=== PATIENT | female | born 1955 | race Caucasian/White ===

== ENCOUNTER 2018-03-10 06:21 | Observation (INO) | payer OTHER ==
[~2018-03-10] VITALS: Ht 154.9 cm; Wt 79.0 kg
[2018-03-10] VITALS (19 sets, daily range): BP systolic 107–154; BP diastolic 59–74; PULSE 61–92; RESP 12–18; Ht 154.9 cm; Wt 79.0 kg
[2018-03-10] MEDS ORDERED: SOD CHLORIDE 0.9% 1,000 ML IV SCH (07:00)
[2018-03-10] MEDS ORDERED: ROCURONIUM 50 MG INJ ONE (07:00)
[2018-03-10] MEDS ORDERED: CEFAZOLIN 2 GM/50 ML (PMX) 50 ML IVPB ONE (07:00)
[2018-03-10] MEDS ORDERED: DESFLURANE 15 MIN ONE (07:00)
[2018-03-10] MEDS ORDERED: ACETAMINOPHEN 500 MG TAB PO STA (07:19)
[2018-03-10] MEDS ORDERED: ACETAMINOPHEN 500 MG TAB ONE (07:22)
[2018-03-10] MEDS ORDERED: LOSA25TA12 PO (07:28)
[2018-03-10] MEDS ORDERED: FISH1CAP PO (07:29)
[2018-03-10] MEDS ORDERED: LEVO100T82 PO (07:29)
[2018-03-10] MEDS ORDERED: ATOR20TA38 PO (07:29)
[2018-03-10] MEDS ORDERED: DEXAMETHASONE 4 MG/ML 5 ML INJ ONE (07:51)
[2018-03-10] MEDS ORDERED: FENTAnyl 50 MCG/ML VIAL ONE ×2 (07:51→09:51)
[2018-03-10] MEDS ORDERED: LIDOCAINE 2% (SDV) 5 ML INJ ONE (07:51)
[2018-03-10] MEDS ORDERED: PROPOFOL 40 ML ONE (07:51)
[2018-03-10] MEDS ORDERED: MIDAZOLAM 1 MG/ML 2 ML INJ ONE (07:51)
[2018-03-10] MEDS ORDERED: CEFAZOLIN 1 GM INJ ONE (07:52)
[2018-03-10] MEDS ORDERED: FAMOTIDINE 20 MG INJ ONE (07:52)
--- NOTE | 2018-03-10 08:18 | PREAC ---
Date/Time of Note Date/Time of Note DATE: 03/10/18 TIME: 08:15 Anesthesia Eval and Record Evaluation Time Pre-Procedure Interview DATE: 03/10/18 TIME: 08:15 Age 62 Sex female NPO: 8 hrs Preoperative diagnosis cholelithiasis Planned procedure Lap cholecystectomy Past Medical History Past Medical History: Includes Cardio: HTN, Dyslipidemia Endo: Hypothyroid GI: Obesity Surgery & Anesthesia Issues No known issue (tubal ligation, appendectomy) Meds Anticoagulation: No Beta Phil within 24 hr: No Reason Beta Phil not given: Pt. not on B-Phil Reported Medications Levothyroxine Sodium* (Levoxyl*) 100 Mcg Tablet, 100 MCG PO BEFORE BREAKFAST, #30 TAB 03/10/18 Atorvastatin Calcium* (Atorvastatin Calcium*) 20 Mg Tablet, 20 MG PO QHS, #30 TAB 03/10/18 Fish Oil/Dha/Epa (FISH OIL 1,200 MG FISH OIL) 1 Each Capsule, 1 EACH PO BID, CAP 03/10/18 Losartan Potassium* (Losartan Potassium*) 25 Mg Tablet, 25 MG PO DAILY, TAB 03/10/18 Current Medications Sodium Chloride 1,000 ml @ 75 mls/hr [id number] IV ; Start 03/10/18 at 07:00; Stop 03/10/18 at 20:19 Meds reviewed: Yes Allergies Coded Allergies: No Known Drug Allergy (Unverified Allergy, Unknown, 03/10/18) Allergies Reviewed: Yes Labs/Studies Labs Reviewed: Reviewed by anesthesiologist Result Diagram: 03/10/18 0706 03/10/18 0706 Laboratory Tests 03/10/18 07:06 test: N/A Studies: ECG (sr, t wav abnormality, consider lateral ischemia), CXR (No acute abnormality) Pre-procedure Exam Last vitals Vital Signs Date Temp Pulse Resp B/P (MAP) Pulse Ox O2 O2 Flow FiO2 Time Delivery Rate 03/10/18 96.5 07:24 03/10/18 61 18 154/67 98 Room Air 07:02 (96) Airway: Adequate mouth opening, Adequate thyromental dist Mallampati: Mallampati II Teeth: Normal Lung: Normal Heart: Normal ASA Physical Status ASA physical status: 2 Emergency: None Planned Anesthetic General/MAC: ETT Pre-operative Attestations Prior to commencing anesthesia and surgery, the patient was re-evaluated, there was verification of: *The patient's identity *The results of appropriate recent lab work and preoperative vital signs *The above evaluation not changing prior to induction *Anesthetic plan, risk benefits, alternative and complications discussed with patient/family; questions answered; patient/family understands, accepts and wishes to proceed. DOUG LESLIE Mar 10, 2018 08:18
[2018-03-10] MEDS ORDERED: OXYCODONE/ACETAMINOPHEN (5/325) TAB PO PRN ×2 (08:30)
[2018-03-10] MEDS ORDERED: ONDANSETRON 4 MG INJ IV PRN ×2 (08:30→11:00)
[2018-03-10] MEDS ORDERED: HYDROmorphONE 1 MG/5 ML IV SYRINGE IV PRN ×2 (08:30)
[2018-03-10] MEDS ORDERED: ALBUTEROL 0.083% (NEB) 2.5 MG/3 ML AMP HHN PRN (08:30)
[2018-03-10] MEDS ORDERED: MEPERIDINE 25 MG INJ IV PRN (08:30)
[2018-03-10] MEDS ORDERED: morphine (1 MG/ML) 10ML SYRINGE IV PRN ×2 (08:30)
[2018-03-10] MEDS ORDERED: LABETALOL HCL 20MG INJ IV PRN (08:30)
[2018-03-10] MEDS ORDERED: DIPHENHYDRAMINE 50 MG INJ IV PRN (08:30)
[2018-03-10] MEDS ORDERED: FENTAnyl 50 MCG/ML VIAL IV PRN ×2 (08:30)
[2018-03-10] MEDS ORDERED: ONDANSETRON 4 MG INJ ONE (09:13)
[2018-03-10] MEDS ORDERED: EPHEDrine SULFATE 50 MG/5 ML SYG ONE (09:23)
[2018-03-10] MEDS ORDERED: PHENYLephrine (100 MCG/ML) 5ML SYG ONE (09:23)
[2018-03-10] MEDS ORDERED: SUGAMMADEX SODIUM 200 MG/2 ML VIAL IV ONE (09:33)
--- NOTE | 2018-03-10 10:33 | SIPON ---
Date/Time of Note Date/Time of Note DATE: 03/10/18 TIME: 10:32 Operative Report Preoperative Diagnosis Symptomatic cholelithiasis Postoperative Diagnosis Symptomatic cholelithiasis with chronic cholecystitis Operation/Procedure Performed Laparoscopic cholecystectomy Surgeon see signature line technical assistance consultant Sr Eulalio Anesthesia: general Estimated blood loss: 10 - 50 ml's Transfusion Required none Specimen Gallbladder Grafts/Implants none Complications none DENILSON MEYER MD Mar 10, 2018 10:33
--- NOTE | 2018-03-10 10:34 | PAC ---
Date/Time of Note Date/Time of Note DATE: 03/10/18 TIME: 10:32 Post-Anesthesia Notes Post-Anesthesia Note Last documented vital signs Vital Signs Date Temp Pulse Resp B/P (MAP) Pulse Ox O2 O2 Flow FiO2 Time Delivery Rate 03/10/18 96.5 07:24 03/10/18 98.4 86 18 156/74 100 face mask 8 1026 (98) Activity: WNL Respiratory function: WNL Cardiovascular function: WNL Mental status: Baseline Pain reasonably controlled: Yes Hydration appropriate: Yes Nausea/Vomiting absent: Yes DOUG LESLIE Mar 10, 2018 10:34
[2018-03-10] MEDS ORDERED: morphine 2 MG INJ IV PRN (11:00)
[2018-03-10] MEDS ORDERED: ACETAMINOPHEN 1000MG/100ML IV 100 ML IVPB PRN (11:00)
--- NOTE | 2018-03-10 11:37 | OPR ---
DATE OF OPERATION: 03/10/2018 PREOPERATIVE DIAGNOSIS: Symptomatic cholelithiasis. POSTOPERATIVE DIAGNOSIS: Symptomatic cholelithiasis with chronic cholecystitis. OPERATION PERFORMED: Laparoscopic cholecystectomy. ANESTHESIA: General. ANESTHESIOLOGIST: Nurse barrel raiser helper, Amaya Dimas NP. SURGEON: Juan Haynes MD. VOYAGE MANAGEMENT SYSTEM OPERATOR: Lj Tsai MD. INDICATIONS FOR PROCEDURE: The patient is a 62-year-old female who presented with multiple previous episodes of right upper quadrant pain. Ultrasound confirmed cholelithiasis. She was counseled as to the risks versus benefits of cholecystectomy. She consented and was scheduled for surgery. DESCRIPTION OF PROCEDURE: The patient was brought to the operating theater, placed under general ane sthesia. The abdomen was prepped and draped in usual sterile fashion. Approximately a 2 cm incision was then made in the midline just above the umbilicus. Subcutaneous tissue was dissected with caute ry down through to the anterior rectus sheath, 0 Vicryl stay sutures were placed on either side of th e linea alba. The linea alba was incised and the abdomen was entered without difficulty. Birgit tro car was then placed in a standard fashion and the abdomen was insufflated to a pressure of approximat kathe 15 mmHg with carbon dioxide. Laparoscope was introduced. Attention was directed to the right up per quadrant where a thick-walled inflamed gallbladder with omental adhesions was identified. Three accessory ports were placed under direct vision in standard fashion. Through the lateral port sites the gallbladder was grasped at the fundus and neck and retracted cephalad and lateral. With a combin ation of cautery and blunt dissection, the adhesions were taken down. The peritoneum overlying both the medial and lateral side of the gallbladder was then incised with cautery to facilitate mobilizati on of the triangle of [place]. With meticulous dissection, the cystic duct was isolated. Two clips we re placed across it distally. It was then transected with the endovascular DEANNA stapler at its junctio n with the neck of the gallbladder. Subsequently, cystic artery was isolated, triply clipped and tra nsected. Gallbladder was then dissected out of the gallbladder fossa using cautery. Prior to final transection, irrigation and inspection took place. Minimal bleeding was controlled with cautery. Ga llbladder was then transected. The laparoscope was moved to the 12-mm subcostal port site, and the ga llbladder was then retrieved through the umbilical port site using the laparoscopic retrieval bag. T he Birgit trocar was placed back into the abdomen. The abdomen was reinsufflated. The camera was tu rned to the umbilical port site. Final irrigation and inspection took place. There was no evidence of bleeding. The 3 accessory ports were then removed under direct vision. Again, there was no evide nce of bleeding. Finally, the umbilical port was removed. Midline umbilical fascia was reapproximat ed with 0 Prolene sutures in [id number] fashion. All wounds were irrigated with Betadine, and t he skin incisions were reapproximated with skin lotus. The patient tolerated the procedure well. The estimated blood loss was approximately 20 mL. There were no complications. The patient was cerda sported in stable condition to the recovery room. Dictated By: JUAN HAYNES MD TL/ABHI Conf#: [id number] DID#: [id number] CC: KIMMY VUONG MD;*EndCC*
[2018-03-10] MEDS: D5W-0.45 NACL + KCL 20 MEQ 1,000 ML IV SCH ×3 (12:05→20:38)
[2018-03-10] MEDS: morphine 4 MG/ML VIAL IV PRN ×3 (12:30→20:34)
--- NOTE | 2018-03-10 12:52 | NUR ---
Transfer Patient admitted from recovery room. Patient is a/o x4, able to make needs known. Not in any distress. Patient came to this unit with no belongings. Skin assessment done with GERMAINE Saini. Complained of pain upon transfer. Pain medication given as ordered. Will continue to monitor patient.
--- NOTE | 2018-03-10 16:14 | HP ---
Date/Time of Note Date/Time of Note DATE: 03/10/18 TIME: 16:09 Assessment/Plan VTE Prophylaxis Risk score (from Ns)>0 risk: 3 SCD applied (from Ns): Yes Pharmacological prophylaxis: NA/contraindicated Pharm contraindication: surgical contra Lines/Catheters IV Catheter Type (from Nrsg): Peripheral IV Assessment/Plan Assessment/Plan -Symptomatic cholelithiasis with chronic cholecystitis. Status post laparoscopic cholecystectomy by Dr. Haynes on 03/10/2018. Continue IV fluids and postoperative antibiotic. Advance diet as patient tolerates. Continue Tylenol and morphine as needed for pain. Continue Zofran as needed as needed for nausea. -Hypothyroidism, continue Synthroid -Hypertension, resume patient's BP medication -Hyperlipidemia, continue statin Further recommendations based on clinical course. Plan of care discussed with Dr. Rodriguez. Result Diagram: 03/10/18 0706 03/10/18 0706 Results 24hrs Laboratory Tests Test 03/10/18 07:06 White Blood Count 8.8 Red Blood Count 4.05 L Hemoglobin 12.8 Hematocrit 38.1 Mean Corpuscular Volume 94.1 Mean Corpuscular Hemoglobin 31.6 Mean Corpuscular Hemoglobin Concent 33.6 Red Cell Distribution Width 13.2 Platelet Count 275 Mean Platelet Volume 10.2 Immature Granulocytes % 0.200 Neutrophils % 48.6 Lymphocytes % 42.6 Monocytes % 5.8 Eosinophils % 1.8 Basophils % 1.0 Nucleated Red Blood Cells % 0.0 Immature Granulocytes # 0.020 Neutrophils # 4.2 Lymphocytes # 3.7 H Monocytes # 0.5 Eosinophils # 0.2 Basophils # 0.1 Nucleated Red Blood Cells # 0.0 Prothrombin Time 12.1 Prothrombin Time Ratio 0.9 INR International Normalized Ratio 0.89 Activated Partial Thromboplast Time 32.0 Sodium Level 141 Potassium Level 4.2 Chloride Level 104 Carbon Dioxide Level 29 Anion Gap 8 Blood Urea Nitrogen 11 Creatinine 0.55 Est Glomerular Filtrat Rate mL/min > 60 Glucose Level 107 Calcium Level 9.4 Total Bilirubin 0.4 Direct Bilirubin 0.00 Indirect Bilirubin 0.4 Aspartate Amino Transf (AST/SGOT) 31 Alanine Aminotransferase (ALT/SGPT) 25 Alkaline Phosphatase 73 Total Protein 8.0 Albumin 4.6 Globulin 3.40 H Albumin/Globulin Ratio 1.35 HPI/ROS Admit Date/Time Admit Date/Time Mar 10, 2018 at 10:40 Hx of Present Illness The patient is a 62-year-old female with history of hypertension, hyperlipidemia and hypothyroidism. Patient experienced multiple episodes of right upper quadrant pain and underwent ultrasound which confirmed cholelithiasis. Patient was evaluated in general surgery consultation with Dr. Haynes. Patient was brought to the hospital and underwent laparoscopic cholecystectomy. Postoperatively patient experiencing significant pain and nausea. Patient is admitted for further evaluation and management. ROS 12 point review of system is negative except for what mentioned in HPI PMH/Family/Social Past Medical History Medical History: high cholesterol, hypertension, hypothyroid Medications Current Medications Sodium Chloride 1,000 ml @ 75 mls/hr [id number] IV ; Start 03/10/18 at 07:00; Stop 03/10/18 at 20:19 Ondansetron HCl (Zofran Inj) 4 mg Q6H PRN IV NAUSEA AND/OR VOMITING Last adm inistered on 03/10/18at 15:47; Admin Dose 4 MG; Start 03/10/18 at 11:00 Acetaminophen/ Hydrocodone Bitart ([place] (5/325)) 1 tab Q6H PRN PO PAIN; Start 03/10/18 at 11:00 Acetaminophen 100 ml @ 400 mls/hr Q6H PRN IVPB PAIN; Start 03/10/18 at 11:00; Stop 03/11/18 at 10:59 Potassium Chloride/Dextrose/ Sod Cl 1,000 ml @ 125 mls/hr Q8H IV Last administered on 03/10/18at 12:05; Admin Dose 125 MLS/HR; Start 03/10/18 at 10:33 Morphine Sulfate (morphine) 2 mg Q1H PRN IV PAIN Last administered on 03/10/18at 15:50; Admin Dose 2 MG; Start 03/10/18 at 12:20 Coded Allergies: No Known Drug Allergy (Unverified Allergy, Unknown, 03/10/18) Past Surgical History Past Surgical Hx: other (Is post tubal ligation many years ago) Family History Significant Family History: no pertinent family hx Social History Alcohol Use: occasionally Smoking Status: Former smoker Drug Use: none Exam/Review of Systems Vital Signs Vitals Vital Signs Date Temp Pulse Resp B/P (MAP) Pulse Ox O2 O2 Flow FiO2 Time Delivery Rate 03/10/18 98.4 82 18 116/60 95 13:53 (78) 1/17/19 Room Air 11:57 Exam Constitutional: alert, oriented Head: normocephalic Neck: supple Respiratory: clear to auscultation Cardiovascular: nl pulses Gastrointestinal: soft, other (Status post laparoscopic cholecystectomy) Musculoskeletal: nl extremities to inspection Extremities: normal pulses Neurological: nl mental status Skin: nl YESSENIA Gaming Mar 10, 2018 16:14
--- NOTE | 2018-03-10 18:56 | NUR ---
EOSS: Patient is a/ox4, in bed resting, patient using IS reaching 1000, tolerating well. PT had pain medication and zofran at 1550. Currently patient denies nausea or pain. IVF running, IV site patent and intact. Family at bedside, will be staying over night. Call light within reach, bed alarm on, SCD's on. Surgical site noted slight bleeding, will continue to monitor and endorse to next shift.
[2018-03-10] MEDS: ATORVASTATIN 20 MG TAB PO SCH (20:34)
--- NOTE | 2018-03-10 21:50 | RADRPT ---
Vent Rate: 60 bpm RR Interval: 0 msec SD Interval: 182 msec QRS Duration: 84 msec QT Interval: 444 msec QTC Interval: 444 msec P-R-T [place]: -7 - 62 - 101 degrees Normal sinus rhythm T wave abnormality, consider lateral ischemia Abnormal ECG Electronically Signed By: Chuy Coleman [id number]
[2018-03-11] VITALS: BP 106/56; PULSE 88; RESP 16
[2018-03-11 04:00] VITALS: BP 112/62; PULSE 81; RESP 18
--- NOTE | 2018-03-11 04:55 | NUR ---
PT ABLE TO SLEEP FAIRLY WELL. LAP SITES WITH BANDAID DRY AND INTACT. CONTINUED WITH FLUIDS. PROVIDED ASSISTANCE.CALL LIGHT WITHIN REACH.
[2018-03-11] MEDS: D5W-0.45 NACL + KCL 20 MEQ 1,000 ML IV SCH ×5 (05:26→22:18)
[2018-03-11] MEDS: morphine 4 MG/ML VIAL IV PRN ×3 (05:27→15:29)
[2018-03-11] MEDS: LEVOTHYROXINE 100 MCG TAB PO SCH (06:03)
[2018-03-11 08:00] VITALS: BP 103/57; PULSE 66; RESP 16
[2018-03-11] MEDS: LOSARTAN 25 MG TAB PO SCH (08:14)
--- NOTE | 2018-03-11 11:41 | PN ---
Date/Time of Note Date/Time of Note DATE: 03/11/18 TIME: 11:41 Assessment/Plan VTE Prophylaxis Risk score (from Ns)>0 risk: 5 SCD applied (from Ns): Yes SCD contraindicated: other Pharmacological prophylaxis: other Pharm contraindication: other Lines/Catheters IV Catheter Type (from Nrsg): Peripheral IV Assessment/Plan Assessment/Plan Assessment/Plan -Symptomatic cholelithiasis with chronic cholecystitis. Status post laparoscopic cholecystectomy by Dr. Haynes on 03/10/2018. Continue IV fluids and postoperative antibiotic. Advance diet as patient tolerates. Continue Tylenol and morphine as needed for pain. Continue Zofran as needed as needed for nausea . -Hypothyroidism, continue Synthroid -Hypertension, resume patient's BP medication -Hyperlipidemia, continue statin Further recommendations based on clinical course. Plan of care discussed with Dr. Rodriguez. Result Diagram: 03/11/18 0540 03/11/18 0540 Results 24hrs Laboratory Tests Test 03/11/18 05:40 White Blood Count 14.0 #H Red Blood Count 3.62 L Hemoglobin 11.4 L Hematocrit 34.4 L Mean Corpuscular Volume 95.0 Mean Corpuscular Hemoglobin 31.5 Mean Corpuscular Hemoglobin Concent 33.1 Red Cell Distribution Width 13.5 Platelet Count 260 Mean Platelet Volume 10.1 Immature Granulocytes % 0.500 H Neutrophils % 77.3 H Lymphocytes % 16.1 Monocytes % 5.9 Eosinophils % 0.0 Basophils % 0.2 Nucleated Red Blood Cells % 0.0 Immature Granulocytes # 0.070 H Neutrophils # 10.8 H Lymphocytes # 2.3 Monocytes # 0.8 Eosinophils # 0.0 Basophils # 0.0 Nucleated Red Blood Cells # 0.0 Sodium Level 139 Potassium Level 4.4 Chloride Level 104 Carbon Dioxide Level 26 Anion Gap 9 Blood Urea Nitrogen 10 Creatinine 0.63 Est Glomerular Filtrat Rate mL/min > 60 Glucose Level 135 Calcium Level 8.8 Exam/Review of Systems Vital Signs Vitals Vital Signs Date Temp Pulse Resp B/P (MAP) Pulse Ox O2 O2 Flow FiO2 Time Delivery Rate 03/11/18 98.8 66 16 103/57 97 08:00 (72) 03/10/18 Room Air 11:57 Intake and Output 03/10/18 03/10/18 03/11/18 1515:00 23:00 07:00 IntakeIntake Total 920 ml 1000 ml 1600 ml OutputOutput Total 10 ml 200 ml BalanceBalance 910 ml 800 ml 1600 ml Medications Medications Current Medications Ondansetron HCl (Zofran Inj) 4 mg Q6H PRN IV NAUSEA AND/OR VOMITING Last administered on 03/10/18 15:47; Admin Dose 4 MG; Start 03/10/18 at 11:00 Acetaminophen/ Hydrocodone Bitart ([place] (5/325)) 1 tab Q6H PRN PO PAIN LEVEL 6-10; Start 03/10/18 at 11:00 Potassium Chloride/Dextrose/ Sod Cl 1,000 ml @ 125 mls/hr Q8H IV Last administered on 03/11/18 05:26; Admin Dose 125 MLS/HR; Start 03/10/18 at 10:33 Morphine Sulfate (morphine) 2 mg Q1H PRN IV PAIN LEVEL 6-10 Last administered on 03/11/18 10:20; Admin Dose 2 MG; Start 03/10/18 at 12:20 Atorvastatin Calcium (Lipitor) 20 mg QHS PO Last administered on 03/10/18at 20:34; Admin Dose 20 MG; Start 03/10/18 at 21:00 Levothyroxine Sodium (Synthroid) 100 mcg BEFORE BREAKFAST PO Last administered on 03/11/18 06:03; Admin Dose 100 MCG; Start 03/11/18 at 07:00 Losartan Potassium (Cozaar) 25 mg DAILY PO Last administered on 03/11/18 08:14; Admin Dose 25 MG; Start 03/11/18 at 09:00 CECY CHURCHILL Mar 11, 2018 11:41
[2018-03-11 12:00] VITALS: BP 104/59; PULSE 62; RESP 16
--- NOTE | 2018-03-11 15:09 | NUR ---
PT'S PREFERRED PHARMACY IS [email or web address] IN [place], [place]. PHONE NUMBER IS [phone].
--- NOTE | 2018-03-11 15:10 | NUR ---
DR BOYD HERE TO SEE PT, WILL SEND PT HOME TOMORROW. PT WALKING THROUGHOUT UNIT TODAY BUT ENCOURAGED TO WALK MORE TO DECREASE BLOATING. INCENTIVE SPIROMETER TEACHING REINFORCED.
[2018-03-11] MEDS ORDERED: MAGNESIUM HYDROXIDE 30ML CUP PO ONE (15:30)
[2018-03-11] MEDS ORDERED: MAGNESIUM HYDROXIDE 30ML CUP PO PRN (15:30)
--- NOTE | 2018-03-11 17:13 | PN ---
DATE: 03/11/2018 Postop day #1 status post laparoscopic cholecystectomy. SUBJECTIVE: Complains of some distention of the abdomen. No bowel movement. Has passed minimal gas. No nausea, no vomiting. Only has tolerated clear liquids so far. OBJECTIVE GENERAL: Awake, alert and oriented x3. VITAL SIGNS: Temperature maximum today 98.8, heart rate 81, respiration 18, blood pressure 103/57, saturation 97% room air. HEART: Regular. LUNGS: Decreased breathing sound at bases. ABDOMEN: Appears very distended, it is tympanic. Bowel sounds hypoactive. EXTREMITIES: Legs no calf tenderness. LABORATORY DATA: Today, WBC 14,000 with 74% segmented; hemoglobin 11.4, hematocrit 34.4. Chemistry: Sodium, potassium, BUN, creatinine within normal limits. ASSESSMENT: This patient is a 63-year-old for post-status laparoscopic cholecystectomy, has got abdominal distention today with decreasing breathing sound and no bowel movement, minimal gas passage and has tolerated so far clear liquids. PLAN: We are going to advance diet to full liquid, keep the patient in the house, especially that she also has very poor inspiratory efforts and have her walk more frequently, give her Milk of Magnesia. hopefully by tomorrow ,the patient will have bowel movement and distention will get better.If The patient is stable., We are going to discharge the patient tomorrow. Dictated By: LYNNE GE/ABHI Conf#: [id number] DID#: [id number] MTDD
--- NOTE | 2018-03-11 18:18 | NUR ---
EOSS: PT STABLE THROUGHOUT SHIFT. ALL DUE MEDS GIVEN. PT WALKING THROUGHOUT UNIT WITH DAUGHTER. PASSING GAS BUT NO BM OF YET. MOM GIVEN. HOURLY ROUNDING COMPLETED. WILL ENDORSE CARE OF PT TO ONCOMING CLUB DIRECTOR RN.
[2018-03-11] MEDS: ATORVASTATIN 20 MG TAB PO SCH (20:00)
[2018-03-11] MEDS: HYDROCODONE/APAP (5/325) TAB PO PRN (20:01)
[2018-03-11 20:02] VITALS: BP 130/66; PULSE 72; RESP 18
[2018-03-12] VITALS: BP 118/64; PULSE 59; RESP 16
[2018-03-12 04:04] VITALS: BP 124/66; PULSE 62; RESP 16
[2018-03-12] MEDS: LEVOTHYROXINE 100 MCG TAB PO SCH (05:45)
[2018-03-12] MEDS: D5W-0.45 NACL + KCL 20 MEQ 1,000 ML IV SCH (05:45)
--- NOTE | 2018-03-12 06:17 | NUR ---
PATIENT IS POD # 2 LAP LADONNA. PAIN IS CONTROLLED WITH CURRENT PAIN MEDS AND AMBULATION. TAUGHT PATIENT AND DAUGHTERS RE: BENEFITS OF EARLY AMBULATION, THEY VERBALIZED UNDERSTANDING AND EVEN AMBULATED SEVERAL TIMES IN THE [place] LAST NIGHT AND THIS MORNING. PATIENT STATES SHE FEELS BETTER. I.S. USE WAS ALSO TAUGHT TO PATIENT AND DAUGHTER, PATIENT DID RETURN DEMONSTRATION. PATIENT HAS YET TO TOLERATE REGULAR CONSISTENCY FOOD TODAY. NO N/V SO FAR WITH FULL LIQUID. LAP SITES C, D, I, NO S/SX OF INFECTION. PLAN TO D/C T HOME WHEN PATIENT IS CLEARED BY MD. CONTINUE POC.
[2018-03-12 07:33] VITALS: BP 160/75; PULSE 60; RESP 18
[2018-03-12] MEDS: LOSARTAN 25 MG TAB PO SCH (08:57)
[2018-03-12] MEDS: HYDROCODONE/APAP (5/325) TAB PO PRN (08:58)
--- NOTE | 2018-03-12 12:38 | PDOCDIS ---
Discharge Instructions CONDITION [id number] Patient Condition: [id number] Stable HOME CARE INSTRUCTIONS: [id number] Diet Instructions: [id number] ACTIVITY: [id number] Activity Restrictions: [id number] Slowly Increase Activity Rest between Activity Avoid heavy lifting Do not Drive Do not operate Machinery Do not operate Power Tool Avoid Heavy Housework [id number] Bathing Restrictions: [id number] Sponge Bath FOLLOW UP/APPOINTMENTS Follow-up Plan - FU with Primary MD in 1 week - FU with surgery as recommended - Call 911 or go to the nearest hospital if symptoms get worse.Patient and her daughter verbalized understanding dc instructions - staff / CECY Stevens Mar 12, 2018 12:38
[2018-03-12] MEDS ORDERED: HYDR-3601 PO (12:39)
[2018-03-12] MEDS ORDERED: DOCU-144 PO (12:39)
[2018-03-12 13:21] VITALS: BP 113/63; PULSE 62; RESP 18
--- NOTE | 2018-03-12 14:39 | NUR ---
NURSES NOTES: SEEN BY DR. BOYD AT BEDSIDE. ORDER RECEIVED TO DISCHARGE PT HOME. PT UP AND AMBULATED IN THE HALLWAY MEDICATED FOR PAIN W/ RELIEF. NO FURTHER COMPLAINTS NOTED. PT ABLE TO PASS FLATUS BUT NO BM . DR. BOYD AWARE.
--- NOTE | 2018-03-12 15:47 | NUR ---
NURSES NOTES; 4 LAP SITES IN THE ABDOMEN CLEAN AND DRY, KELLEY INTACT . NO S/S OF INFECTION NOTED. NO FURTHER COMPLAINTS NOTED. DISCHARGE INSTRUCTIONS, FOLLOW UP CARE, SURGICAL WOUND CARE , INFECTION PREVENTION , PRESCRIPTION GIVEN TO PT AND PT'S DAUGHTER FEDERICO. VERBALIZED UNDERSTANDING WELL. SALINE LOCK REMOVED.
--- NOTE | 2018-03-12 19:41 | PN ---
DATE: 03/12/2018 Postop day #2 status post laparoscopic cholecystectomy. SUBJECTIVE: Feels better, has been out of bed and walking around, has passed more gas, tolerating full liquid diet. No nausea, no vomiting. OBJECTIVE: GENERAL: Awake, alert. VITAL SIGNS: Temperature maximum 98.9, heart rate 62, respiration 18, blood pressure 113/65, saturation 95% room air. LABORATORY DATA: WBC dropped to 11,800 with 54% segmented. She has normal differential. Hemoglobin is stable at 11.7. PHYSICAL EXAMINATION: HEART: Regular. LUNGS: Clear. Some decreased breathing sound at bases. ABDOMEN: Soft, but still it is slightly distended. Bowel sounds present. EXTREMITIES: Lower extremity negative. ASSESSMENT: Postop day #2 laparoscopic cholecystectomy. The patient is stable. Has been passing gas. No nausea, vomiting, tolerating full liquid diet, advancing to regular diet. The patient can be discharged home today in the care of her daughter. If any problem, they were told that they can come to the emergency room here or call Dr. Meyer' office. Otherwise, on 03/22/2018 she has an appointment to be seen by Dr. Meyer in the office. Pain medication will be given. Dictated By: LYNNE BOYD MD PS/NTS Conf#: [id number] DID#: [id number] CC: DENILSON MEYER MD;*EndCC* MTDD
== END 2018-03-12 15:50 | disposition home or self-care (01) ==
LOC: SDS 06:21 → REC 10:40 → INTOOBSV 10:40 → 2NE 11:50
PROVIDERS: ADMIT Surgery Surgical Oncology; ATTEND Surgery Surgical Oncology
DX: K80.10 Calculus of gallbladder with chronic cholecystitis without obstruction (principal); E03.9 Hypothyroidism, unspecified; E78.5 Hyperlipidemia, unspecified; I10 Essential (primary) hypertension; E66.9 Obesity, unspecified; Z68.32 Body mass index [BMI] 32.0-32.9, adult
CPT/HCPCS: 47562; 71045; 80048; 80053; 85025; 85610; 85730; 88304; 93005; 99217; G0378; J0690; J1100; J2250; J2270; J2405; J3010; J3480; J2370